=== PATIENT | female | born 1950 | race Caucasian/White ===

== ENCOUNTER 2016-09-16 12:13 | Emergency (ER) | payer MEDICARE, BC | END 2016-09-16 13:20 | disposition home or self-care (01) | LOC: MADERS 12:13 | DX: B37.2 Candidiasis of skin and nail (principal); F41.9 Anxiety disorder, unspecified; E11.9 Type 2 diabetes mellitus without complications; J45.909 Unspecified asthma, uncomplicated; G47.30 Sleep apnea, unspecified; F32.9 Major depressive disorder, single episode, unspecified; Z87.891 Personal history of nicotine dependence; Z79.899 Other long term (current) drug therapy; Z79.84 Long term (current) use of oral hypoglycemic drugs | CPT/HCPCS: 99282 ==

== ENCOUNTER 2017-02-09 13:21 | Emergency (ER) | payer MEDICARE, BC ==
[~2017-02-09 13:21] MED LIST: Sodium Chloride 0.9% 100 ML BAG ONE
[2017-02-09 14:01] LABS: Bilirubin Moderate (Negative); Blood, Urine Negative (Negative); Clarity Clear (Clear); Glucose, Urine (Dipstick) Negative (Negative); Leukocyte Negative (Negative); Nitrite Negative (Negative); Protein, Urine (Dipstick) Trace mg/dL (Neg-Trace); Specific Gravity, Urine 1.025 (1.005-1.030); pH, Urine 5.5 (5.0-9.0)
[2017-02-09] MEDS ORDERED: Morphine 4 MG/ML VIAL ONE ×2 (14:25→16:39)
[2017-02-09] MEDS ORDERED: Ketorolac Tromethamine 30 MG/ML VIAL ONE (14:26)
--- NOTE | 2017-02-09 14:35 | ULT ---
GALLBLADDER ULTRASOUND: Date: 02/09/17 HISTORY: Right upper quadrant pain for the last few hours. COMPARISON: None. TECHNIQUE: Utilizing a multihertz transducer, sonographic imaging of the right upper quadrant is performed in th e transverse plane. FINDINGS: Evaluation is limited by body habitus and patient's inability to hold breath. FINDINGS: Limited evaluation of the aorta. Pancreas is poorly defined due to underlying bowel gas. Slightly heterogeneous echogenicity of the liver which may be due to hepatic steatosis or hepatocellu lar disease. Evaluation for hepatic masses and intrahepatic biliary dilatation is limited. Common bile duct diameter appears to be 0.4 cm. There are sludge and stones within the lumen of the gallbladder. Gallbladder wall thickness at the up per limits of normal. No significant pericholecystic fluid. However, cement sack breaker does report a positi ve Roberson's sign. Right kidney demonstrates cortical thinning. No hydronephrosis. Right kidney measures 9.2 x 3.9 x 4.5 cm. IMPRESSION: Sonographic evidence of cholelithiasis. There is equivocal evidence for cholecystitis. Consider HIDA scan. POS: [facility]
[2017-02-09 15:08] LABS: #Lymphocytes 0.3 thou/uL (1.20-3.40); #Monocytes 0.6 thou/uL (0.11-0.59); %Basophils 0.3 % (0.0-1.0); %Eosinophils 0.1 % (0.0-10.0); %Lymphocytes 2.3 % (21.0-51.0); %Monocytes 4.2 % (0.0-10.0); %Neutrophils 93.1 % (42.0-75.0); Hemoglobin 12.7 g/dL (12.0-16.0); Mean Corpuscular HGB CONC 33.1 g/dL (32.0-36.0); Mean Corpuscular Hemoglobin 30.6 pg (27.0-31.0); Mean Corpuscular Volume 92.4 fl (81.0-99.0); Mean Platelet Volume 8.3 fL (7.4-10.4); Platelet Count 202 thou/uL (130-400); RBC Distribution Width 13.7 % (11.5-14.5); Red Blood Cell (RBC) Count 4.14 mill/uL (4.20-5.40)
[2017-02-09 15:22] LABS: ALT (SGPT) 545 U/L (8-55); AST (SGOT) 457 U/L (5-34); Alkaline Phosphatase 525 U/L (40-150); Anion Gap 22 mmol/L (10-20); BUN (Urea Nitrogen) 26 mg/dL (9.8-20.1); Bilirubin, Total 4.2 mg/dL (0.2-1.2); Calc. Creatinine Clearance 0 mL/min (70-130); Calcium 9.6 mg/dL (7.8-10.44); Carbon Dioxide 17 mmol/L (23-31); Chloride 108 mmol/L (98-107); Estimated GFR-MDRD 44; Globulin 3.6 g/dL (2.4-3.5); Glucose 157 mg/dL (80-115); Lipase 20 U/L (8-78); Potassium 4.4 mmol/L (3.5-5.1); Protein, Total 7.6 g/dL (6.0-8.3); Sodium 143 mmol/L (136-145)
[2017-02-09] MEDS ORDERED: Piperacillin/Tazobactam 3.375 GM VIAL ONE (15:32)
== END 2017-02-09 16:55 | disposition short-term general hospital (02) ==
LOC: MADERS 13:21
DX: K80.00 Calculus of gallbladder with acute cholecystitis without obstruction (principal); E11.9 Type 2 diabetes mellitus without complications; J45.909 Unspecified asthma, uncomplicated; J43.9 Emphysema, unspecified; G47.30 Sleep apnea, unspecified; F32.9 Major depressive disorder, single episode, unspecified; Z87.891 Personal history of nicotine dependence; Z79.899 Other long term (current) drug therapy; Z79.84 Long term (current) use of oral hypoglycemic drugs
CPT/HCPCS: 36415; 51701; 76705; 80053; 81003; 83690; 85025; 96365; 96375; 96376; A4353; J1885; J2270; J2543; J7050

== ENCOUNTER 2019-06-19 16:04 | Emergency (ER) | payer MEDICARE, BC ==
--- NOTE | 2019-06-19 16:53 | RAD ---
THREE VIEWS RIGHT FOOT: 06/19/19 HISTORY: Injury to right foot. Patient dropped frozen milk on top of right foot. FINDINGS: There is prominent subcutaneous soft tissue swelling seen at the dorsal aspect of the foot and to a l morgan extent at the ankle. No underlying fracture is appreciated, and there is no evidence of a disl ocation. Lisfranc joint is normally aligned. Plantar calcaneal enthesophyte is seen. IMPRESSION: Subcutaneous soft tissue swelling without evidence of an acute osseous abnormality involving the righ t foot. POS: [facility]
== END 2019-06-19 16:56 | disposition home or self-care (01) ==
LOC: MADERS 16:04
DX: S90.31XA Contusion of right foot, initial encounter (principal); E11.9 Type 2 diabetes mellitus without complications; J45.909 Unspecified asthma, uncomplicated; G47.8 Other sleep disorders; F32.9 Major depressive disorder, single episode, unspecified; Z87.891 Personal history of nicotine dependence; Z79.84 Long term (current) use of oral hypoglycemic drugs; Z79.899 Other long term (current) drug therapy; W22.8XXA Striking against or struck by other objects, initial encounter

== ENCOUNTER 2022-01-23 04:47 | Emergency (ER) | payer MEDICARE, BC | END 2022-01-23 06:00 | disposition home or self-care (01) | LOC: MADERS 04:47 | DX: L30.9 Dermatitis, unspecified (principal); E11.9 Type 2 diabetes mellitus without complications; J45.909 Unspecified asthma, uncomplicated; Z87.891 Personal history of nicotine dependence; Z79.899 Other long term (current) drug therapy | CPT/HCPCS: 99283 ==

== ENCOUNTER 2024-11-11 10:58 | Emergency (ER) | payer MEDICARE ==
[2024-11-11] MEDS ORDERED: Lidocaine 1% PF 5 ML VIAL ONE (11:14)
[2024-11-11] MEDS ORDERED: Bacitracin 1 PK ONE (11:14)
== END 2024-11-11 11:45 | disposition home or self-care (01) ==
LOC: MADERS 10:58
DX: S61.412A Laceration without foreign body of left hand, initial encounter (principal); E11.40 Type 2 diabetes mellitus with diabetic neuropathy, unspecified; J45.909 Unspecified asthma, uncomplicated; Z87.891 Personal history of nicotine dependence; Z79.85 Long-term (current) use of injectable non-insulin antidiabetic drugs; W27.2XXA Contact with scissors, initial encounter
CPT/HCPCS: 12001; 99282